=== PATIENT | female | born 1960 | race Caucasian/White ===

== ENCOUNTER → 2017-04-19 | Outpatient (CLI) | payer OTHER ==
[2017-04-19 17:22] LABS: ALANINE AMINOTRANSFERASE 110 U/L (9-52); ALKALINE PHOSPHATASE 139 U/L (38-126); ANION GAP 13 (5-19); ASPARTATE AMINO TRANSFERASE 64 U/L (14-36); BILIRUBIN,DIRECT 0.3 mg/dL (0.0-0.4); BILIRUBIN,TOTAL 0.7 mg/dL (0.2-1.3); BLOOD UREA NITROGEN 14 mg/dL (7-20); CALCIUM 9.7 mg/dL (8.4-10.2); CARBON DIOXIDE 18 mmol/L (22-30); CHLORIDE 104 mmol/L (98-107); CREATININE RESULT 0.55 mg/dL (0.52-1.25); GLUCOSE 351 mg/dL (75-110); POTASSIUM 4.3 mmol/L (3.6-5.0); SODIUM 134.9 mmol/L (137-145); TOTAL PROTEIN 7.5 g/dL (6.3-8.2)
[2017-04-22 11:38] LABS: HEPATITIS C QUANTITATION 4960000 IU/mL (.)
[2017-04-23 07:41] LABS: HCV ALPHA 2-MACROGLOBULINS QNT 251 mg/dL (110-276); HCV FIBROSIS SCORE 0.39 (0.00-0.21); HCV FIBROSIS STAGE F1-F2 (.); HCV FIBROSURE ALT P5P 102 IU/L (0-40); HCV FIBROSURE GGT 289 IU/L (0-60); HCV FIBROSURE HAPTOGLOBIN 81 mg/dL (34-200); HCVFIB APOLIPOPROTEIN A-1 153 mg/dL (116-209); NECROINFLAM ACTIVITY GRADE A2-A3 (.); NECROINFLAMM ACTIVITY SCORE 0.61 (0.00-0.17)
== END ==
LOC: LAB 16:22
PROVIDERS: ATTEND Internal Medicine Gastroenterology
DX: B18.2 Chronic viral hepatitis C (principal)
CPT/HCPCS: 36415; 80053; 82172; 82247; 82977; 83010; 83883; 84460; 87522

== ENCOUNTER → 2017-10-28 | Outpatient (CLI) | payer OTHER, MEDICARE ==
--- NOTE | 2017-10-29 16:21 | WOMENS IMAGING REPORT ---
EXAM DESCRIPTION: BILAT SCREENING MAMMO W/CAD COMPLETED DATE/TIME: 10/28/2017 3:56 pm REASON FOR STUDY: ROUTINE SCREENING; Z12.31 Z12.31 ENCNTR SCREEN MAMMOGRAM FOR MALIGNANT NEOPLASM O F EARLINE COMPARISON: None. TECHNIQUE: Standard craniocaudal and mediolateral oblique views of each breast recorded using digita l acquisition. LIMITATIONS: None. FINDINGS: RIGHT BREAST MASSES: Mass in the right axillary region, located 17 cm from the nipple, imaged on the MLO view only . CALCIFICATIONS: No new or suspicious calcifications. ARCHITECTURAL DISTORTION: None. DEVELOPING DENSITY: None. ASYMMETRY: None noted. OTHER: No other significant findings. LEFT BREAST MASSES: No suspicious masses. CALCIFICATIONS: No new or suspicious calcifications. ARCHITECTURAL DISTORTION: None. DEVELOPING DENSITY: None. ASYMMETRY: None noted. OTHER: No other significant findings. Read with the assistance of CAD. .[facility] - R2 Cenova Version 1.3 .[facility] - R2 Cenova Version 1.3 .[facility] - R2 Cenova Version 2.4 .[facility] - R2 Cenova Version 2.4 .[facility] - R2 Plastic Surgery Manager Version 9.2 IMPRESSION: Mass in the right axillary region, either a breast mass or abnormal lymph node. No worr isome mammographic finding in the left breast. BREAST DENSITY: b. There are scattered areas of fibroglandular density. BIRAD: 0 Incomplete: Needs Additional Imaging Evaluation and/or prior Mammograms for Comparison. RECOMMENDATION: RECOMMENDED FOLLOW-UP: Recommend additional evaluation with breast tomosynthesis (pr eferred) or compression views of the right breast and ultrasound of the right breast. In 3 to Mammo left The patient will be contacted for additional imaging. COMMENT: The patient has been notified of the results by letter per SA requirements. Additional no tification policies are in place for contacting patient with suspicious or incomplete findings. Quality ID #[id number]: The [employer] recommends an annual screening mammogram for women aged 40 years or over. This facility utilizes a reminder system to ensure that all patients receive reminder letters, and/or direct phone calls for appointments. This includes reminders for routine scr eening mammograms, diagnostic mammograms, or other Breast Imaging Interventions when appropriate. Th is patient will be placed in the appropriate reminder system. The [employer] (ACR) has developed recommendations for screening MRI of the breast s in certain patient populations, to be used in conjunction with mammography. Breast MRI surveillanc e may be appropriate for women with more than 20% lifetime risk of developing breast cancer as deter mined by genetic testing, significant family history of the disease, or history of mantle radiation f or Hodgkins Disease. ACR Practice Guidelines 2008. TECHNICAL DOCUMENTATION: FINDING NUMBER: (1) ASSESSMENT: (1) JOB ID: [id number] [employer]- All Rights Reserved
== END ==
LOC: WI 15:40
PROVIDERS: ATTEND Internal Medicine
DX: Z12.31 Encounter for screening mammogram for malignant neoplasm of breast (principal)
CPT/HCPCS: 77067

== ENCOUNTER → 2017-11-08 | Outpatient (CLI) | payer OTHER, MEDICARE ==
--- NOTE | 2017-11-08 19:19 | WOMENS IMAGING REPORT ---
EXAM DESCRIPTION: RIGHT DIAGNOSTIC MAMMO W/CAD; U/S BREAST UNILATERAL, COMPL COMPLETED DATE/TIME: 11/08/2017 1:39 pm; 11/08/2017 2:30 pm REASON FOR STUDY: RIGHT AXILLARY TAIL; RT BREAST N63.31 N63.31 UNSPECIFIED LUMP IN AXILLARY TAIL O F THE RIGHT BREAST COMPARISON: Bilateral screening 10/28/2017 TECHNIQUE: Exaggerated craniocaudal and 90 mediolateral images of the breast recorded with digital acquisition. Additional right breast and axilla ultrasound LIMITATIONS: None. FINDINGS: BREAST: Right MASSES: High up along the tail of Cruz/axilla, a mammographic nodule with lobular borders is presen t measuring about 2.3 cm in diameter. Remainder of the breast parenchyma is otherwise unremarkable. CALCIFICATIONS: No new or suspicious calcifications. ARCHITECTURAL DISTORTION: None. DEVELOPING DENSITY: None. ASYMMETRY: None noted. OTHER: No other significant findings. Read with the assistance of CAD. .[facility] - R2 Cenova Version 1.3 .[facility] Imaging - R2 Cenova Version 1.3 .[facility] Imaging - R2 Cenova Version 2.4 .[facility] [place] - R2 Cenova Version 2.4 .[facility] - R2 Wardrobe Attendant Version 9.2 Right breast and axilla ultrasound: High up along the tail of Cruz/axilla, a malignant appearing solid nodule is present which correlat es with the mammogram. This is hypoechoic with ill-defined margins and internal color flow, and bill ures 2.3 cm in greatest diameter. Remainder of the right axilla was examined. A 4 by 2 cm lymph node is present without focal cortical thickening. Preserved central hilar fat. Ultrasound of the entire right breast was also performed. No worrisome acoustic absorption. Benign anechoic 5 mm breast cyst at 3 o'clock position, benign-appearing anechoic cyst 5 mm in size at the 1 2 o'clock position. IMPRESSION: Malignant appearing mass in the high tail of Cruz/inferior axillary region. Ultrasoun d-guided core biopsy of nodule is recommended, with post biopsy clip placement and follow-up two-view mammogram. These results were discussed with the patient. She understands the need for biopsy and is amenable t o ultrasound-guided core biopsy being performed at [facility] BREAST DENSITY: b. There are scattered areas of fibroglandular density. BIRAD: 5 Highly suggestive of malignancy. Appropriate action should be taken. RECOMMENDATION: RECOMMENDED FOLLOW UP: Right breast tail of Cruz/axillary nodule ultrasound-guided core biopsy with post biopsy clip placement and follow-up two-view mammogram SPECIFIC INTERVENTION/IMAGING/CONSULTATION RECOMMENDED:As above COMMUNICATION:These results were discussed with the patient. She is amenable to ultrasound-guided co re biopsy being performed at [facility] COMMENT: The patient has been notified of the results by letter per SA requirements. Additional no tification policies are in place for contacting patient with suspicious or incomplete findings. Quality ID #[id number]: The [employer] recommends an annual screening mammogram for women aged 40 years or over. This facility utilizes a reminder system to ensure that all patients receive reminder letters, and/or direct phone calls for appointments. This includes reminders for routine scr eening mammograms, diagnostic mammograms, or other Breast Imaging Interventions when appropriate. Th is patient will be placed in the appropriate reminder system. The [employer] (ACR) has developed recommendations for screening MRI of the breast s in certain patient populations, to be used in conjunction with mammography. Breast MRI surveillanc e may be appropriate for women with more than 20% lifetime risk of developing breast cancer as deter mined by genetic testing, significant family history of the disease, or history of mantle radiation f or Hodgkins Disease. ACR Practice Guidelines 2008. TECHNICAL DOCUMENTATION: FINDING NUMBER: (1) ASSESSMENT: (1) JOB ID: [id number] [employer]- All Rights Reserved Reading location - IP/workstation name: [facility]
--- NOTE | 2017-11-08 19:19 | WOMENS IMAGING REPORT ---
EXAM DESCRIPTION: RIGHT DIAGNOSTIC MAMMO W/CAD; U/S BREAST UNILATERAL, COMPL COMPLETED DATE/TIME: 11/08/2017 1:39 pm; 11/08/2017 2:30 pm REASON FOR STUDY: RIGHT AXILLARY TAIL; RT BREAST N63.31 N63.31 UNSPECIFIED LUMP IN AXILLARY TAIL O F THE RIGHT BREAST COMPARISON: Bilateral screening 10/28/2017 TECHNIQUE: Exaggerated craniocaudal and 90 mediolateral images of the breast recorded with digital acquisition. Additional right breast and axilla ultrasound LIMITATIONS: None. FINDINGS: BREAST: Right MASSES: High up along the tail of Cruz/axilla, a mammographic nodule with lobular borders is presen t measuring about 2.3 cm in diameter. Remainder of the breast parenchyma is otherwise unremarkable. CALCIFICATIONS: No new or suspicious calcifications. ARCHITECTURAL DISTORTION: None. DEVELOPING DENSITY: None. ASYMMETRY: None noted. OTHER: No other significant findings. Read with the assistance of CAD. .[facility] - R2 Cenova Version 1.3 .[facility] - R2 Cenova Version 1.3 .[facility] Imaging - R2 Cenova Version 2.4 .[facility] - R2 Cenova Version 2.4 .[facility] - R2 Hydraulic Auto Jack Mechanic Version 9.2 Right breast and axilla ultrasound: High up along the tail of Cruz/axilla, a malignant appearing solid nodule is present which correlat es with the mammogram. This is hypoechoic with ill-defined margins and internal color flow, and bill ures 2.3 cm in greatest diameter. Remainder of the right axilla was examined. A 4 by 2 cm lymph node is present without focal cortical thickening. Preserved central hilar fat. Ultrasound of the entire right breast was also performed. No worrisome acoustic absorption. Benign anechoic 5 mm breast cyst at 3 o'clock position, benign-appearing anechoic cyst 5 mm in size at the 1 2 o'clock position. IMPRESSION: Malignant appearing mass in the high tail of Cruz/inferior axillary region. Ultrasoun d-guided core biopsy of nodule is recommended, with post biopsy clip placement and follow-up two-view mammogram. These results were discussed with the patient. She understands the need for biopsy and is amenable t o ultrasound-guided core biopsy being performed at [facility] BREAST DENSITY: b. There are scattered areas of fibroglandular density. BIRAD: 5 Highly suggestive of malignancy. Appropriate action should be taken. RECOMMENDATION: RECOMMENDED FOLLOW UP: Right breast tail of Cruz/axillary nodule ultrasound-guided core biopsy with post biopsy clip placement and follow-up two-view mammogram SPECIFIC INTERVENTION/IMAGING/CONSULTATION RECOMMENDED:As above COMMUNICATION:These results were discussed with the patient. She is amenable to ultrasound-guided co re biopsy being performed at [facility] COMMENT: The patient has been notified of the results by letter per SA requirements. Additional no tification policies are in place for contacting patient with suspicious or incomplete findings. Quality ID #225: The [employer] recommends an annual screening mammogram for women aged 40 years or over. This facility utilizes a reminder system to ensure that all patients receive reminder letters, and/or direct phone calls for appointments. This includes reminders for routine scr eening mammograms, diagnostic mammograms, or other Breast Imaging Interventions when appropriate. Th is patient will be placed in the appropriate reminder system. The [employer] (ACR) has developed recommendations for screening MRI of the breast s in certain patient populations, to be used in conjunction with mammography. Breast MRI surveillanc e may be appropriate for women with more than 20% lifetime risk of developing breast cancer as deter mined by genetic testing, significant family history of the disease, or history of mantle radiation f or Hodgkins Disease. ACR Practice Guidelines 2008. TECHNICAL DOCUMENTATION: FINDING NUMBER: (1) ASSESSMENT: (1) JOB ID: [id number] [employer]- All Rights Reserved Reading location - IP/workstation name: [facility]
== END ==
LOC: WI 13:15
PROVIDERS: ATTEND Internal Medicine
DX: N63.31 Unspecified lump in axillary tail of the right breast (principal)
CPT/HCPCS: 76641